=== PATIENT | female | born 1940 | race African-American/Black ===

== ENCOUNTER 2018-04-04 05:31 | Day surgery (SDC) | payer MEDICARE, MEDICAID ==
[~2018-04-04] VITALS: Ht 170.2 cm; Wt 61.7 kg
[~2018-04-04 05:31] MED LIST: ATOR10TA69 PO; BIMA2.5D4 BOTHEYE; HYDR-4134 PO; NEBI5TAB3 PO; OMEP20TA2 PO; VALS1TAB80 PO
[2018-04-04] MEDS ORDERED: TROPICAMIDE 1% OPHTH DROPS 15ML LEFTEYE SCH (06:10)
[2018-04-04] MEDS ORDERED: PHENYLEPHRINE HCL 10% OPHTH DROPS 5ML LEFTEYE SCH (06:10)
[2018-04-04] MEDS ORDERED: CYCLOPENTOLATE HCL 1% OPHTH DROPS 2ML LEFTEYE SCH (06:10)
[2018-04-04] MEDS ORDERED: LACTATED RINGERS 1,000 ML IV SCH (06:30)
[2018-04-04] MEDS ORDERED: BALANCED SALT IRRIG SOLN COMB1 500ML OP ONE (06:45)
[2018-04-04] MEDS ORDERED: HYALURONATE SODIUM 14 MG/ML 0.85ML SYRINGE IO ONE (07:09)
[2018-04-04] MEDS ORDERED: PROPOFOL 200MG/20ML VIAL IV ONE (07:51)
[2018-04-04] MEDS ORDERED: MIDAZOLAM HCL 2 MG/2 ML VIAL ONE (07:51)
[2018-04-04] MEDS ORDERED: LIDOCAINE HCL 1% 20ML VIAL (Pyxis) INJ ONE (07:51)
[2018-04-04] MEDS ORDERED: SODIUM CHLORIDE 0.9% 1,000 ML IV ONE (07:57)
[2018-04-04] MEDS ORDERED: IBUPROFEN 600MG TABLET PO NR (08:00)
[2018-04-04] MEDS ORDERED: ONDANSETRON HCL 4MG/2ML VIAL IV PRN (08:00)
[2018-04-04] MEDS ORDERED: CYCLOPENTOLATE HCL 1% OPHTH DROPS 2ML ONE (15:11)
[2018-04-04] MEDS ORDERED: PREDNISOLONE ACETATE 1% OPHTH DROPS 1ML ONE (15:11)
[2018-04-04] MEDS ORDERED: PHENYLEPHRINE HCL 10% OPHTH DROPS 5ML ONE (15:11)
[2018-04-04] MEDS ORDERED: TETRACAINE 0.5% OPHTH DROPS 4ML ONE (15:11)
[2018-04-04] MEDS ORDERED: NEO/POLYMYX B SULF/DEXAMETH OPHTH OINT 3.5GM ONE (15:11)
[2018-04-04] MEDS ORDERED: BALANCED SALT IRRIG SOLN 15ML ONE (15:11)
[2018-04-04] MEDS ORDERED: LIDOCAINE HCL 2%/EPINEPHRINE 1:100,000 20 ML VIAL INFIL ONE (15:11)
[2018-04-04] MEDS ORDERED: TROPICAMIDE 1% OPHTH DROPS 15ML ONE (15:11)
[2018-04-04] MEDS ORDERED: BUPIVACAINE HCL/PF 0.75% (7.5MG/ML) 10ML ONE (15:11)
[2018-04-04] MEDS ORDERED: CIPROFLOXACIN 0.3% OPHTH SOLN 2.5ML ONE (15:11)
== END 2018-04-04 10:15 | disposition home or self-care (01) ==
LOC: OR 05:31
PROVIDERS: ATTEND Ophthalmology
DX: H25.12 Age-related nuclear cataract, left eye (principal); I10 Essential (primary) hypertension; E78.00 Pure hypercholesterolemia, unspecified; K21.9 Gastro-esophageal reflux disease without esophagitis; M19.90 Unspecified osteoarthritis, unspecified site; Z98.41 Cataract extraction status, right eye; Z79.899 Other long term (current) drug therapy
CPT/HCPCS: 66984; 93005; J2250; J3490; J7120; V2632; J2704